=== PATIENT | male | born 1950 | race Caucasian/White ===

== ENCOUNTER 2019-03-19 11:16 | Emergency (ER) | payer BC, OTHER ==
--- NOTE | 2019-03-19 11:20 | UC ---
Respiratory Complaint HPI - HPI Summary HPI Summary: Patient is a 68yo male with PMHx significant for asthma x30 years presents with for SOB for the last week. Patient states that "this feels like usual asthma exacerbation, except inhaler does not seem to completely resolve sob like it normally does." Patient states that sob is worse with exertion. Also notes that "it feels like he cant exhale fully." Denies chest pain/tightness. Notes intermittent wheezing. States sob "comes and goes." States normally has sputum production in the mornings but that today he has not been able to bring any up. Denies increased sputum production. notes intermittent LE swelling for the past year. Patient denies this. Denies fever and chills. Never smoker. - History of Current Complaint Stated Complaint: ASTHMA SHORT OF BREATH Hx Obtained From: Patient, Family/Manufacturing Executive - - Allergies/Home Medications Allergies/Adverse Reactions: Allergies Allergy/AdvReac Type Severity Reaction Status Date / Time coffee Allergy GI Upset Uncoded 03/19/19 11:31 msg Allergy diarhea Uncoded 03/19/19 11:31 Home Medications: Home Medications Albuterol HFA INHALER* 1 puff INH 03/19/19 [History] Budesonide/Formote 160/4.5(NF) [Symbicort 160/4.5 (NF)] 1 puff INH DAILY [History Confirmed 03/19/19] PMH/Surg Hx/FS Hx/Imm Hx Respiratory History: Asthma - Family History Known Family History: Positive: Cardiac Disease - HF - mother, Diabetes - mother - Social History Lives: With Family Alcohol Use: None Substance Use Type: None Smoking Status (MU): Never Smoked Tobacco Review of Systems All Other Systems Reviewed And Are Negative: Yes Constitutional: Positive: Negative. Negative: Fever, Chills, Fatigue ENT: Positive: Other - PND. Negative: Sore Throat, Sinus Congestion Respiratory: Positive: Shortness Of Breath - mainly on exertion, Other - intermittent wheezing. Negative: Cough Cardiovascular: Positive: Negative. Negative: Palpitations, Chest Pain Gastrointestinal: Positive: Negative. Negative: Vomiting, Nausea Musculoskeletal: Positive: Negative Neurological: Positive: Negative Psychological: Positive: Negative Physical Exam Triage Information Reviewed: Yes Appearance: Well-Appearing, No Pain Distress, Well-Nourished Vital Signs: Vital Signs (72 hours) 03/19/19 11:25 Temperature 97.8 F Pulse Rate 97 Respiratory 16 Rate Blood Pressure 173/107 151/100 (mmHg) manual O2 Sat by Pulse 98 Oximetry Vital Signs Reviewed: Yes Eyes: Positive: Conjunctiva Clear ENT: Positive: Hearing grossly normal, Nasal drainage - PND, TMs normal, Uvula midline. Negative: Nasal congestion, Tonsillar swelling, Tonsillar exudate Neck exam: Normal Neck: Positive: Supple, Nontender, No Lymphadenopathy Respiratory: Positive: Chest non-tender, No respiratory distress, No accessory muscle use, Crackles - faint crackles heard on expiration at lung bases. Negative: Rhonchi, Stridor, Wheezing Cardiovascular Exam: Normal Cardiovascular: Positive: RRR. Negative: Tachycardia Musculoskeletal: Positive: Edema @ - 1+ BLEs Neurological: Positive: Alert Psychological: Positive: Age Appropriate Behavior Skin Exam: Normal Diagnostics - Radiology chest Radiology Interpretation Completed By: Radiologist Summary of Radiographic Findings: FINDINGS: The heart is within normal limits in size. Mediastinal and hilar contours appear within normal limits. There are diffuse interstitial infiltrates and thickening of the pleural fissures. There is suggestion of a trace right pleural effusion. IMPRESSION: FINDINGS SUGGESTIVE OF INTERSTITIAL PULMONARY EDEMA LESS LIKELY PNEUMONIA OR CHRONIC INTERSTITIAL LUNG DISEASE. Respiratory Course/Dx - Course Course Of Treatment: Patient received nebulizer here and noted minimal relief. BP 173/107 on arrival. Took manual after sitting a while and was 151/100. Patient CXR revealed interstitial pulmonary edema. Discussed this with patient and voiced concern for cardiac etiology. Patient afebrile and in no respiratory distress. I discussed with patient that he needs further lab work and evaluation. Offered lab work here and follow up tomorrow or option to go straight to emergency room from here for immediate workup. Discussed with patient that if he chose not to go to ED, that he absolutely must follow up within the next 24 hours. Patient states that [facility]. I sent patient home with lisinopril and furosemide until able to be seen tomorrow. Instructed patient to go to ED immediately with any new or worsening symptoms or if he is unable to be seen by pcp tomorrow. Patient and voiced understanding and agreed with treatment plan. Denied further questions. Discussed patient with Dr. Montes who agreed with treatment plan. - Differential Dx/Diagnosis Differential Diagnosis/HQI/PQRI: Asthma, CHF, Pulmonary Edema, Exacerbation Of COPD Provider Diagnosis: Pulmonary edema, Shortness of breath Discharge ED - Sign-Out/Discharge Documenting (check all that apply): Patient Departure All imaging exams completed and their final reports reviewed: Yes - Discharge Plan Condition: Stable Disposition: HOME Prescriptions: Furosemide TAB* [Lasix TAB*] 20 mg PO SEE INSTRUCTIONS #3 tab Lisinopril [Zestril] 10 mg PO DAILY #7 tablet Patient Education Materials: Pulmonary Edema (ED), Shortness of Breath (ED) Referrals: Georges Ley MD [Primary Care Provider] - 1 Day Additional Instructions: As discussed, your chest xray revealed pulmonary edema. This has multiple causes and needs further work-up as soon as possible. Take 20mg of the furosemide today. If no significant urine outflow occurs, take another 20mg 3-4 hours later. Then, take another 20mg tomorrow. You have also been prescribed lisinopril. Take 10mg daily until you receive further instruction from primary care doctor. You may continue with your inhaler as needed for shortness of breath if you find relief with it. You must follow up tomorrow with your primary care provider. If you are unable to follow up tomorrow, or you develop new or worsening symptoms, go to the nearest emergency room or call 911. - Billing Disposition and Condition Condition: STABLE Disposition: Home
[2019-03-19 11:32] VITALS: BP 173/107
[2019-03-19] MEDS ORDERED: Albuterol 2.5 MG/3 ML NEB.SOL* (0.083%) INH ONE (11:41)
== END 2019-03-19 12:54 | disposition home or self-care (01) ==
LOC: UCEAST 11:16
DX: J81.1 Chronic pulmonary edema (principal); R06.02 Shortness of breath; J45.909 Unspecified asthma, uncomplicated; Z79.899 Other long term (current) drug therapy; Z79.51 Long term (current) use of inhaled steroids; Z91.02 Food additives allergy status; Z91.018 Allergy to other foods
CPT/HCPCS: 71046; 99202; G0463

== ENCOUNTER 2019-03-20 06:52 | Inpatient (IN) | payer OTHER ==
[2019-03-20] MEDS ORDERED: Nitro 2% OINT* (Nitroglycerin) 1 INCH/PAK PAK ONE (07:07)
[2019-03-20] MEDS ORDERED: Furosemide IV* 10 MG/ML 10 ML VIAL (100 MG) ONE (07:07)
[2019-03-20] MEDS ORDERED: Furosemide IV* 10 MG/ML 10 ML VIAL (100 MG) IV ONE (07:11)
[2019-03-20] MEDS ORDERED: Nitro 2% OINT* (Nitroglycerin) 1 INCH/PAK PAK TOPICAL ONE (07:11)
[2019-03-20] MEDS ORDERED: NS 0.9% 1000 ML** 1,000 ML IV SCH (07:15)
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
[2019-03-20 07:21] LABS: ABS Eosinophils 0.3 10^3/ul (0-0.6); ABS Monocytes 0.6 10^3/ul (0-0.8); Eosinophil % 3.2 %; Hematocrit 55 % (42-52); Hemoglobin 18.9 g/dL (14.0-18.0); Lymphocyte % 33.1 %; Mean Corpuscular HGB Conc 34 g/dL (31-36); Mean Corpuscular Hemoglobin 32 pg (27-31); Mean Corpuscular Volume 92 fL (80-94); Mean Platelet Volume 8.1 fL (7.4-10.4); Nucleated Red Blood Cells % 0.1; Platelet Count 291 10^3/uL (150-450); Red Blood Count 5.99 10^6 /uL (4.18-5.48); Red Cell Distribution Width 14 % (10-15)
[2019-03-20 07:33] LABS: Influenza A Molecular NEGATIVE (Negative); Influenza B Molecular NEGATIVE (Negative)
[2019-03-20 07:34] LABS: Albumin 4.8 g/dL (3.2-5.2); Albumin/Globulin Ratio 1.5 (1-3); BUN/Creatinine Ratio 11.1 (8-20); Calcium 9.5 mg/dL (8.6-10.3); EGFR African American 74.6 (>60); EGFR Non-African American 61.6 (>60); Globulin 3.1 g/dL (2-4); Potassium 3.5 mmol/L (3.5-5.0); Total Bilirubin 0.8 mg/dL (0.2-1.0); Total Protein 7.9 g/dL (6.4-8.9)
[2019-03-20 07:36] LABS: Troponin I 0.01 ng/mL (<0.03)
[2019-03-20] MEDS ORDERED: Potassium Chlor TAB* 20 MEQ TAB.ER PO ONE ×2 (07:48→19:06)
[2019-03-20] MEDS ORDERED: Albuterol/Ipratropium NEB.SOL* Albuterol 2.5 MG/Ipratropium 0.5 MG 3 ML INH PRN (07:53)
[2019-03-20 08:45] LABS: TSH (Thyroid Stimulating Horm) 1.44 mcIU/mL (0.34-5.60)
[2019-03-20] MEDS ORDERED: Acetaminophen TAB* 325 MG PO PRN (09:46)
[2019-03-20] MEDS ORDERED: Al Hydrox/Mg Hydrox/Simet LIQ* 30 ML UDC PO PRN (09:46)
[2019-03-20] MEDS: Mometasone/Formoter 200/5 MDI INH SCH ×2 (12:21→19:51)
[2019-03-20] MEDS ORDERED: Perflutren Lipid Microsphere* 3 ML VIAL ONE (12:42)
[2019-03-20 13:54] LABS: BUN/Creatinine Ratio 12.1 (8-20); Calcium 8.7 mg/dL (8.6-10.3); EGFR African American 82.7 (>60); EGFR Non-African American 68.3 (>60); Magnesium 1.9 mg/dL (1.9-2.7); Potassium 3.8 mmol/L (3.5-5.0)
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
--- NOTE | 2019-03-20 18:31 | ECHO ---
*[facility]* [place] [address] Fax #: [phone] Transthoracic Echocardiogram Patient: Grover Campos V : 1950 Study Date: 03/20/2019 Age: 68 Gender: M HR: 87 bpm Height: 67 in /170.2 cm BSA: 1.93 m^2 Weight: 178.6 lb /81.2 kg BMI: 28 kg/m^2 *Director Of Anesthesia Services: * Una Wilson RDCS RN *Referring Physician: * Ana Lepe *Reading Physician: * Annika Bernal MD Indications: Congestive Heart Failure. History: Asthma. Syncopal episode years ago. Risk factors: Hypertension. Conclusions Summary: - Left ventricle: The cavity size is normal. Wall thickness is mildly increased. Systolic function is moderately to severely reduced. The estimated ejection fraction is 25-30%. Moderate to severe diffuse hypokinesis. - Mitral valve: There is trace to mild regurgitation. - Aortic valve: There is trace regurgitation. - Tricuspid valve: There is trace regurgitation. - No previous echocardiogram available. Study data: Transthoracic echocardiogram. Procedure: Transthoracic echocardiography was performed. Image quality was fair. Intravenous Definity 3 ml was administered to enhance imaging. Complete 2D, spectral Doppler, and color flow Doppler. Location: Bedside. Patient status: Inpatient. Patient room number: 445-02. Rhythm: Normal sinus rhythm with PVC's. Findings Left ventricle: The cavity size is normal. Wall thickness is mildly increased. Systolic function is moderately to severely reduced. The estimated ejection fraction is 25-30%. Moderate to severe diffuse hypokinesis. Doppler parameters are consistent with abnormal left ventricular relaxation (grade 1 diastolic dysfunction). Right ventricle: The cavity size is normal. Wall thickness is mildly increased. Systolic function is normal. Left atrium: The atrium is normal in size. Right atrium: The atrium is normal in size. Mitral valve: The leaflets are mildly thickened. There is no evidence of stenosis. There is trace to mild regurgitation. Aortic valve: The valve is trileaflet. The leaflets are mildly thickened. There is no evidence of stenosis. There is trace regurgitation. Tricuspid valve: The valve is structurally normal. There is no evidence of stenosis. There is trace regurgitation. Pulmonic valve: The valve is structurally normal. There is no evidence of stenosis. There is trace regurgitation. Aorta: Ascending aorta: The ascending aorta is not dilated. Aortic arch: The aortic arch is not dilated. The aortic root appears normal. Pericardium: There is no pericardial effusion. Pulmonary arteries: Not well visualized. Systolic pressure can not be accurately estimated. Systemic veins: Inferior vena cava: The vessel is normal in size. There is (>= 50%) respiratory change in the IVC dimension. Measurements Left ventricle Value Ref Aortic valve Value Ref SHONDA, LAX 4.5 cm 4.2 - 5.8 Jannette diam, ED 2.2 cm ---- ESD, LAX 4.0 cm 2.5 - 4.0 Peak v, S 1.05 m/sec ---- FS, LAX (L) 11 % 25 - 43 VTI, S 20.9 cm ---- PW, ED (H) 1.2 cm 0.6 - 1.0 Mean grad, S 3.0 mm Hg ---- IVS/PW, ED 0.99 Peak grad, S 4.0 mm Hg ---- E', lat jannette, TDI (L) 6.2 cm/sec >=10.0 LVOT/AV, VTI ratio 0.71 -- -- E/e', lat jannette, 15 TDI Mitral valve Value Ref E', med jannette, TDI (L) 4.8 cm/sec >=7.0 Peak E 0.96 m/sec -- -- E/e', med jannette, 20 Peak A 0.77 m/sec ---- TDI Decel time 162 ms ---- E', avg, TDI 5.5 cm/sec Peak grad, D 3.7 mm Hg ---- E/e', avg, TDI (H) 17 <=14 Peak E/A ratio 1.2 -- -- LVOT Value Ref Pulmonic valve Value Ref Peak flor, S 0.84 m/sec Peak v, S 0.8 m/sec ---- VTI, S 14.8 cm Peak grad, S 3.0 mm Hg ---- Mean grad, S 2 mm Hg Aortic root Value Ref Ventricular septum Value Ref Root diam 3.2 cm <4.1 IVS, ED (H) 1.2 cm 0.6 - 1.0 Ascending aorta Value Ref Right ventricle Value Ref AAo AP diam, S 3.1 cm ---- AW thickness, ED (H) 0.7 cm 0.1 - 0.5 SHONDA, LAX 2.8 cm Aortic arch Value Ref SHONDA minor ax, A4C 3.4 cm 1.9 - 3.5 Arch diam 2.5 cm ---- mid Decending aorta Value Ref Left atrium Value Ref Kalen peak flor 0.45 m/sec ---- AP dim, ES 3.40 cm 3.00 - 4.00 Inferior vena cava Value Ref ML dim, A4C 3.8 cm Diam 1.7 cm ---- SI dim, A4C 5.0 cm Vol/bsa, ES, 1-p 17 ml/m^2 12 - 37 A4C Vol/bsa, ES, A/L 26 ml/m^2 16 - 34 Right atrium Value Ref SI dim, ES 4.5 cm 3.4 - 5.3 ML dim, ES, A4C 3.4 cm 2.6 - 4.4 SI dim, ES, A4C 4.5 cm 3.4 - 5.3 Estimated RAP 3 mm Hg Legend: (L) and (H) sammi values outside specified reference range. Prepared and electronically signed by Annika Bernal MD 03/20/2019 18:30
[2019-03-20] MEDS ORDERED: Furosemide IV* 10 MG/ML VIAL (40 MG) IV ONE (19:06)
[2019-03-20] MEDS: Lisinopril TAB* 10 MG PO SCH (20:13)
[2019-03-20] MEDS: Enoxaparin(*) 40 MG/0.4 ML SYR SUBCUT SCH (20:14)
[2019-03-20] MEDS: Metoprolol Tartrate TAB* 25 MG PO SCH (20:14)
[2019-03-21 05:26] LABS: BUN/Creatinine Ratio 12.8 (8-20); Calcium 8.4 mg/dL (8.6-10.3); EGFR African American 74.6 (>60); EGFR Non-African American 61.6 (>60); Magnesium 1.9 mg/dL (1.9-2.7); Potassium 3.8 mmol/L (3.5-5.0)
--- NOTE | 2019-03-21 08:10 | PN ---
Subjective Date of Service: 03/21/19 Interval History: No acute events overnight. Few episodes of asymptomatic NSVT. Patient still requiring O2 this AM, but will continue to wean. Cardiology consult in place given systolic heart failure with hypokinesis. Started on beta-kiara last night and tolerating well. Patient reports ongoing orthopnea but thinks his LE edema is improved. Objective Active Medications: Acetaminophen (Tylenol Tab*) 975 mg PO Q8H PRN PRN Reason: PAIN - MILD Al Hydrox/Mg Hydrox/Simethicone (Maalox Plus*) 30 ml PO Q6H PRN PRN Reason: INDIGESTION Albuterol/Ipratropium (Duoneb (Albuterol 2.5 Mg/Ipratropium 0.5 Mg)) 1 neb INH Q4H PRN PRN Reason: SOB/WHEEZING Enoxaparin Sodium (Lovenox(*)) 40 mg SUBCUT BEDTIME [facility] Last Admin: 03/20/19 20:14 Dose: 40 mg Lisinopril (Prinivil Tab*) 10 mg PO BEDTIME [facility] Last Admin: 03/20/19 20:13 Dose: 10 mg Metoprolol Tartrate (Lopressor Tab*) 12.5 mg PO Q12HR [facility] Last Admin: 03/20/19 20:14 Dose: 12.5 mg Mometasone Furoate/Formoterol Fumar (Dulera 200/5 Mdi*) 2 puff INH BID [facility]; Protocol Last Admin: 03/20/19 19:51 Dose: 2 puff Vital Signs - 8 hr 03/21/19 03/21/19 00:15 03:06 Temperature 98.2 F Pulse Rate 82 Respiratory 16 Rate Blood Pressure 110/70 107/77 (mmHg) O2 Sat by Pulse 98 Oximetry Oxygen Devices in Use Now: Nasal Cannula Appearance: well appearing man in NAD, alert and interactive, speaking in full sentences Eyes: No Scleral Icterus Ears/Nose/Mouth/Throat: Clear Oropharnyx, Mucous Membranes Moist Neck: NL Appearance and Movements; NL JVP, Trachea Midline Respiratory: Symmetrical Chest Expansion and Respiratory Effort, Clear to Auscultation Cardiovascular: NL Sounds; No Murmurs; No JVD, RRR Abdominal: NL Sounds; No Tenderness; No Distention, No Hepatosplenomegaly Extremities: - - trace edema over ankles Skin: No Rash or Ulcers Result Diagrams: 03/20/19 07:07 03/21/19 04:57 Assess/Plan/Problems-Billing Assessment: Mr. Soriano is a 68-year-old man with history of asthma and hypertension who is presenting with 1 week of progressive dyspnea in the context of lower extremity swelling and orthopnea. He was found to have hypoxia, with TTE revealing new HFrEF 25-30%. - Patient Problems (1) Heart failure with reduced ejection fraction Comment: New diagnosis. EF 25-30%. - cont lisinopril 10mg, metoprolol tartrate 12.5mg q12h - give another dose of furosemide 40mg IV today and wean O2 as able - monitor BP, daily weight, Is & Os - cardiology consult pending (2) Asthma Comment: - cont home Symbicort formulary substitute - nebs prn SOB (3) DVT prophylaxis Comment: lovenox
[2019-03-21] MEDS: Mometasone/Formoter 200/5 MDI INH SCH ×2 (08:23→19:26)
[2019-03-21] MEDS ORDERED: Furosemide IV* 10 MG/ML VIAL (40 MG) IV ONE (08:54)
[2019-03-21] MEDS: Metoprolol Tartrate TAB* 25 MG PO SCH ×2 (09:22→21:03)
--- NOTE | 2019-03-21 13:23 | CONS ---
CC: Dr. Georges Ley CARDIOLOGY CONSULTATION REPORT: DATE OF CONSULT: 03/21/19 REFERRING PHYSICIAN: Dr. Ana Lepe. REASON FOR CONSULT: Shortness of breath with cardiomyopathy. HISTORY OF PRESENT ILLNESS: Mr. Soriano is a 68-year-old gentleman without known cardiac disease, who notes 1 week of shortness of breath. He was admitted to [facility] yesterday and received Lasix apparently with good effect. He had a transthoracic echocardiogram completed yesterday (please see also that report for further details), which showed severely depressed left ventricular ejection fraction of 25% to 30% with [id number] diffuse hypokinesis, functionally benign heart valves. Cardiac chamber sizes were normal. The patient does deny chest pain. PAST MEDICAL HISTORY: Significant for hypertension in the past. He was apparently on an JOSÉ inhibitor but that was stopped previously. He also does have a history of asthma, cholecystectomy in 2011, vitamin B12 deficiency. HOME MEDICATIONS: 1. Symbicort 1 puff daily. 2. Albuterol 2 puffs q.4 hours p.r.n. 3. Vitamin B complex. ALLERGIES TO MEDICATIONS: None. He denies shrimp, seafood, or dye allergies. FAMILY HISTORY: Mother with a history of congestive heart failure. No family history of AZ. There is a family history of diabetes and cancer with his father passing away of lymphoma and his maternal grandmother having a history of breast cancer. No family history of stroke. SOCIAL HISTORY: He does not smoke cigarettes. He occasionally drinks a glass of wine. He does not use illicit drugs. He has been for 46 years. 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 He does not do exercises and states he spends 12 to 16 hours per day in front of his computer. REVIEW OF SYSTEMS: He denies personal history of stroke, cancer, vomiting up blood, coughing up blood, bright red blood per rectum, bleeding stomach ulcers, or renal calculi. He has a history of asthma. He denies emphysema, pneumonia, tuberculosis, sleep apnea, home oxygen use, or diabetes. Again, he has a history of hypertension in the past but he is off medications prior to this hospitalization. He denies prior AZ, congestive heart failure, cardiac surgery , cardiac murmurs or palpitations. He has a history of PTSD from his service in [place], for which he was treated with therapy. Denies lupus, psoriasis, seizures, Parkinson disease, myasthenia gravis, thyroid disorders, liver disorders, kidney disorders, claudication symptoms, pulmonary emboli, deep venous thrombosis, or peripheral arterial disease. He has been having occasional edema for the past year and a half. He has a history of acid indigestion and apparently had a barium swallow. All other review of systems are negative x14 except as per this documentation. PHYSICAL EXAM: Height 5 feet 7 inches, weight 177 pounds, temperature 97.6 degrees Fahrenheit, pulse 84, O2 saturation 97%, blood pressure 98/55 to 109/ 68. On general exam, he is a pleasant gentleman, in no acute distress. HEENT shows the cranium is normocephalic and atraumatic. He has moist mucosal membranes. Neck veins reveal a JVP of 10 cm while sitting upright. No carotid bruits. Visible skin warm and perfused. Lungs are clear to auscultation. No wheezes and no rales. Cardiac exam: S1, S2. Regular rate. No significant murmurs, rubs or gallops. PMI is nondisplaced. Abdomen: Soft, nondistended, appears benign. Extremities with no more than trivial peripheral edema. Pulses appear grossly intact. DIAGNOSTIC STUDIES/LAB DATA: A 12-lead EKG, 03/21/19 at 06:03 a.m., demonstrates sinus arrhythmia with left atrial enlargement, consider old anterior infarct with nonspecific T-wave changes. Echocardiogram yesterday completed as above. White blood cell count 9, hematocrit 55, platelet count 291. Sodium 139, potassium 3.8, chloride 103, bicarbonate 30, BUN 15, creatinine 1.17. Troponin 0.01, TSH 1.44, magnesium 2.0. IMPRESSION: Mr. Soriano is a 68-year-old gentleman with a history of hypertension in the past, although he did not require continued medical therapy for that, now admitted with shortness of breath for 1 week. He has been found to have severe global cardiomyopathy. He is responding to diuretics. PLAN/RECOMMENDATIONS: 1. Agree with institution of JOSÉ inhibitor and beta-kiara, and if tolerating including regarding his blood pressure and electrolytes stable, could add Aldactone 25 mg once a day on 03/23/19. Also would start Lasix 20 mg once a day and follow renal function. 2. Ischemic evaluation with an exercise Myoview nuclear stress scan for further cardiovascular risk stratification. 3. Further recommendations to follow the above. The patient may follow up with myself as an outpatient postdischarge from a cardiac standpoint. 4. Other management as per the hospitalist medicine service. Dear Dr. Ana Lepe, many thanks for this kind cardiac consultation. Please do not hesitate to contact me if you have any questions or concerns regarding the patient's cardiovascular consultative care. The case has been discussed with the patient who is agreeable and I have discussed the case with Dr. Lepe. [id number]/CPS #: [id number] BRANDI
[2019-03-21] MEDS: Enoxaparin(*) 40 MG/0.4 ML SYR SUBCUT SCH (21:02)
[2019-03-21] MEDS: Lisinopril TAB* 10 MG PO SCH (21:03)
[2019-03-22] MEDS: Furosemide TAB* 20 MG PO SCH (06:03)
[2019-03-22] MEDS: Spironolactone TAB* 25 MG PO SCH (06:03)
[2019-03-22] MEDS: Mometasone/Formoter 200/5 MDI INH SCH ×2 (08:21→19:43)
[2019-03-22] MEDS: Metoprolol Tartrate TAB* 25 MG PO SCH ×2 (08:36→20:18)
[2019-03-22 08:46] LABS: CO2 Carbon Dioxide 24 mmol/L (22-32); Calcium 8.7 mg/dL (8.6-10.3); Chloride 102 mmol/L (101-111); Sodium 136 mmol/L (135-145)
[2019-03-22 08:51] LABS: BUN/Creatinine Ratio 18.6 (8-20); Blood Urea Nitrogen 21 mg/dL (6-24); EGFR African American 77.6 (>60); EGFR Non-African American 64.2 (>60); Glucose 89 mg/dL (70-100)
[2019-03-22 08:55] LABS: Anion Gap 10 mmol/L (2-11)
--- NOTE | 2019-03-22 10:05 | PN ---
Subjective Date of Service: 03/22/19 Interval History: No acute events overnight. BP/HR tolerating initiation of HFrEF regimen. On room air today. Continue to encourage ambulation. Pending stress on Sunday. Patient had episode of vasovagal prodrome this morning - felt hot, clammy, need to use bathroom. Pressed call pope - vitals normal and symptoms resolved spontaneously. Without recurrence. Denies dyspnea or chest pain now. Objective Active Medications: Acetaminophen (Tylenol Tab*) 975 mg PO Q8H PRN PRN Reason: PAIN - MILD Al Hydrox/Mg Hydrox/Simethicone (Maalox Plus*) 30 ml PO Q6H PRN PRN Reason: INDIGESTION Albuterol/Ipratropium (Duoneb (Albuterol 2.5 Mg/Ipratropium 0.5 Mg)) 1 neb INH Q4H PRN PRN Reason: SOB/WHEEZING Enoxaparin Sodium (Lovenox(*)) 40 mg SUBCUT BEDTIME [facility] Last Admin: 03/21/19 21:02 Dose: 40 mg Furosemide (Lasix Tab*) 20 mg PO DAILY@0600 [facility] Last Admin: 03/22/19 06:03 Dose: 20 mg Lisinopril (Prinivil Tab*) 10 mg PO BEDTIME [facility] Last Admin: 03/21/19 21:03 Dose: 10 mg Metoprolol Tartrate (Lopressor Tab*) 12.5 mg PO Q12HR [facility] Last Admin: 03/22/19 08:36 Dose: 12.5 mg Mometasone Furoate/Formoterol Fumar (Dulera 200/5 Mdi*) 2 puff INH BID [facility]; Protocol Last Admin: 03/22/19 08:21 Dose: 2 puff Spironolactone (Aldactone Tab*) 25 mg PO DAILY@0600 [facility] Last Admin: 03/22/19 06:03 Dose: 25 mg Vital Signs - 8 hr 03/22/19 03/22/19 03/22/19 03:38 05:34 07:39 Temperature 97.8 F 97.8 F 97.7 F Pulse Rate 86 88 85 Respiratory 20 16 14 Rate Blood Pressure 124/82 129/82 114/65 (mmHg) O2 Sat by Pulse 100 99 100 Oximetry 03/22/19 03/22/19 08:00 08:24 Temperature Pulse Rate 89 Respiratory 14 14 Rate Blood Pressure (mmHg) O2 Sat by Pulse 100 Oximetry Appearance: well appearing man in NAD, speaking in full sentences Eyes: No Scleral Icterus Ears/Nose/Mouth/Throat: Clear Oropharnyx, Mucous Membranes Moist Neck: NL Appearance and Movements; NL JVP, Trachea Midline Respiratory: Symmetrical Chest Expansion and Respiratory Effort, Clear to Auscultation Cardiovascular: NL Sounds; No Murmurs; No JVD, RRR Abdominal: NL Sounds; No Tenderness; No Distention, No Hepatosplenomegaly Extremities: No Edema Skin: No Rash or Ulcers Neurological: Alert and Oriented x 3 Result Diagrams: 03/22/19 12:37 03/22/19 12:37 Assess/Plan/Problems-Billing Assessment: Mr. Soriano is a 68-year-old man with history of asthma and hypertension who is presenting with 1 week of progressive dyspnea in the context of lower extremity swelling and orthopnea. He was found to have hypoxia, with TTE revealing new HFrEF 25-30%. - Patient Problems (1) Heart failure with reduced ejection fraction Comment: New diagnosis. EF 25-30%. - cont lisinopril 10mg, metoprolol suc 25mg - switch IV to PO furosemide 20mg daily - start spironolactone - monitor BP, daily weight, Is & Os - cardiology recommending nuclear stress test on Sunday (2) Asthma Comment: - cont home Symbicort formulary substitute - nebs prn SOB (3) DVT prophylaxis Comment: lovenox
[2019-03-22 12:44] LABS: Hematocrit 46 % (42-52); Hemoglobin 16.1 g/dL (14.0-18.0); Mean Corpuscular HGB Conc 35 g/dL (31-36); Mean Corpuscular Hemoglobin 32 pg (27-31); Mean Corpuscular Volume 91 fL (80-94); Mean Platelet Volume 7.9 fL (7.4-10.4); Platelet Count 244 10^3/uL (150-450); Red Blood Count 5.08 10^6 /uL (4.18-5.48); Red Cell Distribution Width 14 % (10-15); White Blood Count 8.5 10^3/uL (3.5-10.8)
[2019-03-22 13:01] LABS: BUN/Creatinine Ratio 17.1 (8-20); Calcium 9.1 mg/dL (8.6-10.3); EGFR African American 74.6 (>60); EGFR Non-African American 61.6 (>60); Potassium 4.1 mmol/L (3.5-5.0)
[2019-03-22] MEDS: Enoxaparin(*) 40 MG/0.4 ML SYR SUBCUT SCH (20:18)
[2019-03-22] MEDS: Lisinopril TAB* 10 MG PO SCH (20:18)
[2019-03-23] MEDS: Spironolactone TAB* 25 MG PO SCH (05:12)
[2019-03-23] MEDS: Furosemide TAB* 20 MG PO SCH (05:12)
[2019-03-23 06:45] LABS: BUN/Creatinine Ratio 17.7 (8-20); Calcium 9.1 mg/dL (8.6-10.3); EGFR African American 77.6 (>60); EGFR Non-African American 64.2 (>60); Magnesium 2.1 mg/dL (1.9-2.7); Potassium 3.9 mmol/L (3.5-5.0)
[2019-03-23] MEDS: Metoprolol Succinate XL TAB* 25 MG PO SCH (07:48)
[2019-03-23] MEDS: Mometasone/Formoter 200/5 MDI INH SCH ×2 (08:00→20:23)
--- NOTE | 2019-03-23 08:18 | PN ---
Subjective Date of Service: 03/23/19 Interval History: No acute events overnight. Patient is off O2 and on only oral medications. He is tolerating his new HF regimen well. Pending stress test tomorrow. Objective Active Medications: Acetaminophen (Tylenol Tab*) 975 mg PO Q8H PRN PRN Reason: PAIN - MILD Al Hydrox/Mg Hydrox/Simethicone (Maalox Plus*) 30 ml PO Q6H PRN PRN Reason: INDIGESTION Albuterol/Ipratropium (Duoneb (Albuterol 2.5 Mg/Ipratropium 0.5 Mg)) 1 neb INH Q4H PRN PRN Reason: SOB/WHEEZING Enoxaparin Sodium (Lovenox(*)) 40 mg SUBCUT BEDTIME [facility] Last Admin: 03/22/19 20:18 Dose: 40 mg Furosemide (Lasix Tab*) 20 mg PO DAILY@0600 [facility] Last Admin: 03/23/19 05:12 Dose: 20 mg Lisinopril (Prinivil Tab*) 10 mg PO BEDTIME [facility] Last Admin: 03/22/19 20:18 Dose: 10 mg Metoprolol Succinate (Toprol Xl Tab*) 25 mg PO DAILY [facility] Last Admin: 03/23/19 07:48 Dose: 25 mg Mometasone Furoate/Formoterol Fumar (Dulera 200/5 Mdi*) 2 puff INH BID [facility]; Protocol Last Admin: 03/23/19 08:00 Dose: 2 puff Spironolactone (Aldactone Tab*) 25 mg PO DAILY@0600 [facility] Last Admin: 03/23/19 05:12 Dose: 25 mg Vital Signs - 8 hr 03/23/19 03/23/19 03/23/19 02:54 07:08 07:36 Temperature 97.6 F 98.0 F Pulse Rate 86 85 Respiratory 14 18 16 Rate Blood Pressure 115/72 126/82 (mmHg) O2 Sat by Pulse 94 96 Oximetry 03/23/19 08:06 Temperature Pulse Rate 82 Respiratory 20 Rate Blood Pressure (mmHg) O2 Sat by Pulse 94 Oximetry Oxygen Devices in Use Now: None Appearance: well appearing man in NAD, alert and interactive, speaking in full sentences Eyes: No Scleral Icterus Ears/Nose/Mouth/Throat: Clear Oropharnyx, Mucous Membranes Moist Neck: NL Appearance and Movements; NL JVP, Trachea Midline Respiratory: Symmetrical Chest Expansion and Respiratory Effort, Clear to Auscultation Cardiovascular: NL Sounds; No Murmurs; No JVD, RRR Abdominal: NL Sounds; No Tenderness; No Distention, No Hepatosplenomegaly Lymphatic: No Cervical Adenopathy Extremities: No Edema Skin: No Rash or Ulcers Neurological: Alert and Oriented x 3 Result Diagrams: 03/22/19 12:37 03/23/19 06:07 Assess/Plan/Problems-Billing Assessment: Mr. Soriano is a 68-year-old man with history of asthma and hypertension who is presenting with 1 week of progressive dyspnea in the context of lower extremity swelling and orthopnea. He was found to have hypoxia, with TTE revealing new HFrEF 25-30%. - Patient Problems (1) Heart failure with reduced ejection fraction Comment: New diagnosis. EF 25-30%. - cont lisinopril 10mg, metoprolol suc 25mg - cont furosemide PO 20mg daily, and spironolactone 25mg daily - monitor BP, daily weight, Is & Os - cardiology recommending nuclear stress test on Sunday (2) Asthma Comment: - cont home Symbicort formulary substitute - nebs prn SOB (3) DVT prophylaxis Comment: lovenox
[2019-03-23] MEDS: Lisinopril TAB* 10 MG PO SCH (20:55)
[2019-03-23] MEDS: Enoxaparin(*) 40 MG/0.4 ML SYR SUBCUT SCH (20:55)
[2019-03-24] MEDS: Mometasone/Formoter 200/5 MDI INH SCH (06:59)
[2019-03-24] MEDS: Metoprolol Succinate XL TAB* 25 MG PO SCH (10:57)
[2019-03-24] MEDS: Spironolactone TAB* 25 MG PO SCH (10:57)
[2019-03-24] MEDS: Furosemide TAB* 20 MG PO SCH (10:57)
[2019-03-24 11:24] VITALS: BP 113/71
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
== END 2019-03-24 14:45 | disposition home or self-care (01) | DRG 314 ==
LOC: ED 06:52 → MEDTELE 09:45
PROVIDERS: ADMIT Internal Medicine; ATTEND Hospitalist
DX: I42.8 Other cardiomyopathies (principal); J96.01 Acute respiratory failure with hypoxia; I50.21 Acute systolic (congestive) heart failure; I11.0 Hypertensive heart disease with heart failure; J45.909 Unspecified asthma, uncomplicated; I10 Essential (primary) hypertension; E53.8 Deficiency of other specified B group vitamins; Z79.51 Long term (current) use of inhaled steroids; Z79.899 Other long term (current) drug therapy; Z83.3 Family history of diabetes mellitus; Z82.49 Family history of ischemic heart disease and other diseases of the circulatory system; Z80.3 Family history of malignant neoplasm of breast; Z80.7 Family history of other malignant neoplasms of lymphoid, hematopoietic and related tissues
CPT/HCPCS: 36415; 71045; 78452; 80048; 80053; 82803; 83036; 83605; 83735; 83880; 84443; 84484; 85025; 85027; 93005; 93017; 93306; 94640; 96374; 99284; A9270-GY; A9502; C8929; J1650; J1940

== ENCOUNTER 2019-03-25 16:09 | Emergency (ER) | payer OTHER ==
[2019-03-25 16:27] VITALS: BP 132/82
--- NOTE | 2019-03-25 16:41 | UC ---
Cardiac HPI - HPI Summary HPI Summary: 68-year-old male comes in with a chief complaint of chest pain. Started several hours ago. In the center of his chest. Is like a pressure. He also has some shortness of breath. He was recently diagnosed with nonischemic cardiomyopathy. He had a stress test yesterday and that was no need for any stents. He was discharged from the hospital yesterday after admission starting March 20, 2019. Patient has bilateral pedal edema which has improved since being admitted to the hospital. - History of Current Complaint Chief Complaint: UCChestPain Stated Complaint: CHEST COMPLAINT Time Seen by Provider: 03/25/19 16:11 Pain Intensity: 4 - Allergy/Home Medications Allergies/Adverse Reactions: Allergies Allergy/AdvReac Type Severity Reaction Status Date / Time No Known Drug Allergies Allergy See Comment Verified 03/25/19 16:19 coffee AdvReac GI Upset Uncoded 03/25/19 16:19 msg AdvReac diarhea Uncoded 03/25/19 16:19 PMH/Surg Hx/FS Hx/Imm Hx Previously Healthy: Yes - nonischemic cardiomyopathy Respiratory History: Asthma - Surgical History Surgical History: Yes Surgery Procedure, Year, and Place: [facility] - Family History Known Family History: Positive: Cardiac Disease - HF - mother, Diabetes - mother - Social History Alcohol Use: Occasionally Substance Use Type: None Smoking Status (MU): Never Smoked Tobacco - Immunization History Most Recent Influenza Vaccination: 01/2020 Most Recent Pneumonia Vaccination: cannot remember date Review of Systems All Other Systems Reviewed And Are Negative: Yes Constitutional: Positive: Other - SEE HPI Skin: Positive: Negative Eyes: Positive: Negative ENT: Positive: Negative Respiratory: Positive: Shortness Of Breath Cardiovascular: Positive: Chest Pain Gastrointestinal: Positive: Negative Motor: Positive: Negative Neurovascular: Positive: Negative Musculoskeletal: Positive: Edema Neurological: Positive: Negative Psychological: Positive: Negative Is Patient Immunocompromised?: No Physical Exam Triage Information Reviewed: Yes Appearance: Well-Appearing, No Pain Distress, Well-Nourished Vital Signs: Initial Vital Signs Temp 98.5 F 03/25/19 16:21 Pulse 90 03/25/19 16:21 Resp 18 03/25/19 16:21 BP 132/82 03/25/19 16:21 Pulse Ox 96 03/25/19 16:21 Vital Signs Reviewed: Yes Eye Exam: Normal Eyes: Positive: Conjunctiva Clear Neck: Positive: Supple Respiratory: Positive: Lungs clear, Normal breath sounds, No respiratory distress Cardiovascular: Positive: RRR Musculoskeletal: Positive: Strength Intact, ROM Intact, Edema @ - Bilateral pedal pitting edema. Neurological: Positive: Alert Psychological: Positive: Normal Response To Family, Age Appropriate Behavior Skin Exam: Normal Diagnostics - EKG Cardiac Rate: NL - AT 1614 Cardiac Rhythm: Sinus: Normal - 94BPM Ectopy: None ST Segment: Non-Specific - Assessment/Plan Course Of Treatment: I discussed the EKG with the patient and his . I do not see any ischemic changes other than some nonspecific T abnormalities at this time. I compared it to an EKG from March 21, 2019 and today's EKG appears more normal than that EKG. I let the patient know that he needed further varies in the emergency department. He declined ambulance transport prefers to go by POV. - Clinical Impression Provider Diagnosis: Chest pain Discharge ED - Sign-Out/Discharge Documenting (check all that apply): Patient Departure All imaging exams completed and their final reports reviewed: No Studies - Discharge Plan Condition: Stable Disposition: HOME-RECOMMEND TO ED Patient Education Materials: Chest Pain (ED) Referrals: Georges Ley MD [Primary Care Provider] - Additional Instructions: GO DIRECTLY TO THE EMERGENCY DEPARTMENT FOR FURTHER EVALUATION OF YOUR CHEST PAIN. - Billing Disposition and Condition Condition: STABLE Disposition: Home-Recommend to ED
== END 2019-03-25 16:50 | disposition home health service (06) ==
LOC: UCEAST 16:09
DX: R07.9 Chest pain, unspecified (principal); R60.0 Localized edema; I42.8 Other cardiomyopathies; J45.909 Unspecified asthma, uncomplicated; R06.02 Shortness of breath; Z91.09 Other allergy status, other than to drugs and biological substances; Z91.018 Allergy to other foods
CPT/HCPCS: 93005; 99212; G0463

== ENCOUNTER 2019-03-25 17:06 | Emergency (ER) | payer OTHER ==
[2019-03-25 17:53] LABS: ABS Eosinophils 0.2 10^3/ul (0-0.6); ABS Lymphocytes 1.8 10^3/ul (1.0-4.8); ABS Monocytes 0.7 10^3/ul (0-0.8); ABS Neutrophils 3.2 10^3/ul (1.5-7.7); Eosinophil % 2.7 %; Hematocrit 47 % (42-52); Hemoglobin 16.4 g/dL (14.0-18.0); Mean Corpuscular HGB Conc 35 g/dL (31-36); Mean Corpuscular Hemoglobin 32 pg (27-31); Mean Corpuscular Volume 91 fL (80-94); Mean Platelet Volume 8.3 fL (7.4-10.4); Nucleated Red Blood Cells % 0.1; Platelet Count 253 10^3/uL (150-450); Red Blood Count 5.14 10^6 /uL (4.18-5.48); Red Cell Distribution Width 14 % (10-15); White Blood Count 5.8 10^3/uL (3.5-10.8)
[2019-03-25 18:00] LABS: INR 1.07 (0.82-1.09)
[2019-03-25 18:11] LABS: Albumin 4.6 g/dL (3.2-5.2); Albumin/Globulin Ratio 1.7 (1-3); BUN/Creatinine Ratio 13.5 (8-20); Calcium 9.5 mg/dL (8.6-10.3); EGFR African American 64.3 (>60); EGFR Non-African American 53.2 (>60); Globulin 2.7 g/dL (2-4); Potassium 4.5 mmol/L (3.5-5.0); Total Bilirubin 0.7 mg/dL (0.2-1.0); Total Protein 7.3 g/dL (6.4-8.9); Troponin I 0.01 ng/mL (<0.03)
--- NOTE | 2019-03-25 18:35 | ED ---
HPI Chest Pain - HPI Summary HPI Summary: The patient is a 68 y/o M presenting to [facility] accompanied by daughter with a chief complaint of chest discomfort at 1200 today. He reports that he was just discharged from the hospital yesterday, and since being discharged, he hasnt felt right or comfortable. He endorses nausea, lightheadedness, and overall general discomfort. Today, he experienced a pressure sensation in the mid- sternal chest described as a bubble or burp in the wrong place. The pressure is only mildly present now. He has not taken any medications for the pain. The pain was sudden onset, and he was at rest. Prior to that, he ate chicken with stuffing and had only been drinking green tea. When he was here, he had a nuclear stress test on a treadmill without positive results. He notes a similar sensation before but in a different location. PMHx: HTN, asthma, COPD , pulmonary edema, CHF. Nonsmoker, occasional EtOH, no substance use. Medications reviewed. Allergies noted. - History of Current Complaint Chief Complaint: EDChestPainROMI Time Seen by Provider: 03/25/19 18:25 Hx Obtained From: Patient Onset/Duration: Started Hours Ago - 1200, Still Present Time of Onset: 12:00 Timing: Constant, Lasting Hours Initial Severity: Moderate Current Severity: Mild Pain Intensity: 0 Pain Scale Used: 0-10 Numeric Chest Pain Location: Mid Sternal Chest Pain Radiates: No Character: Other: - pressure, "bubble" Aggravating Factor(s): Nothing Alleviating Factor(s): Nothing Associated Signs and Symptoms: Positive: Chest Pain, Lightheadedness, Nausea - Additional Pertinent History Primary Care Physician: BARAK - Allergy/Home Medications Allergies/Adverse Reactions: Allergies Allergy/AdvReac Type Severity Reaction Status Date / Time No Known Drug Allergies Allergy See Comment Verified 03/25/19 16:19 coffee AdvReac GI Upset Uncoded 03/25/19 16:19 msg AdvReac diarhea Uncoded 03/25/19 16:19 PMH/Surg Hx/FS Hx/Imm Hx Endocrine/Hematology History: Denies: Hx Diabetes Cardiovascular History: Reports: Hx Congestive Heart Failure, Hx Hypertension Respiratory History: Reports: Hx Asthma, Hx Chronic Obstructive Pulmonary Disease (COPD), Hx Pulmonary Edema Sensory History: Reports: Hx Contacts or Glasses Denies: Hx Hearing Aid Opthamlomology History: Reports: Hx Contacts or Glasses - Surgical History Surgical History: Yes Surgery Procedure, Year, and Place: [place] Infectious Disease History: No Infectious Disease History: Denies: Traveled Outside the [place] in Last 30 Days - Family History Known Family History: Positive: Cardiac Disease - HF - mother, Diabetes - mother - Social History Alcohol Use: Occasionally Hx Substance Use: No Substance Use Type: Reports: None Hx Tobacco Use: No Smoking Status (MU): Never Smoked Tobacco Review of Systems Positive: Chest Pain - mid-sternal "bubble" "burp in the wrong place" Positive: Nausea Neurological: Other - lightheadedness All Other Systems Reviewed And Are Negative: Yes Physical Exam - Summary Physical Exam Summary: Constitutional: Well-developed, Well-nourished, Alert. (-) Distressed Skin: Warm, Dry HENT: Normocephalic; Atraumatic Eyes: Conjunctiva normal Neck: Musculoskeletal ROM normal neck. (-) JVD, (-) Stridor, (-) Tracheal deviation Cardio: Rhythm regular, rate normal, Heart sounds normal; Intact distal pulses; Radial pulses are 2+ and symmetric. (-) Murmur Pulmonary/Chest wall: Effort normal. (-) Respiratory distress, (-) Wheezes, (-) Rales Abd: Soft, (-) tenderness, (-) Distension, (-) Guarding, (-) Rebound Musculoskeletal: (+) 1+ Pitting edema bilaterally Lymph: (-) Cervical adenopathy Neuro: Alert, Oriented x3 Psych: Mood and affect Normal Triage Information Reviewed: Yes Vital Signs On Initial Exam: Initial Vitals Temp Pulse Resp BP Pulse Ox 98.6 F 87 16 142/82 99 03/25/19 17:09 03/25/19 17:09 03/25/19 17:09 03/25/19 17:09 03/25/19 17:09 Vital Signs Reviewed: Yes Procedures - Sedation Patient Received Moderate/Deep Sedation with Procedure: No Diagnostics - Vital Signs Vital Signs Temp Pulse Resp BP Pulse Ox 03/25/19 17:09 98.6 F 87 16 142/82 99 - Laboratory Lab Results: Lab Results 03/25/19 03/25/19 03/25/19 Range/Units 17:36 17:36 17:36 WBC 5.8 (3.5-10.8) 10^3/uL RBC 5.14 (4.18-5.48) 10^6 /uL Hgb 16.4 (14.0-18.0) g/dL Hct 47 (42-52) % MCV 91 (80-94) fL MCH 32 H (27-31) pg MCHC 35 (31-36) g/dL RDW 14 (10-15) % Plt Count 253 (150-450) 10^3/uL MPV 8.3 (7.4-10.4) fL Neut % (Auto) 54.3 % Lymph % (Auto) 31.0 % [place] % (Auto) 11.5 % Eos % (Auto) 2.7 % Baso % (Auto) 0.5 % Absolute Neuts (auto) 3.2 (1.5-7.7) 10^3/ul Absolute Lymphs (auto) 1.8 (1.0-4.8) 10^3/ul Absolute Monos (auto) 0.7 (0-0.8) 10^3/ul Absolute Eos (auto) 0.2 (0-0.6) 10^3/ul Absolute Basos (auto) 0.0 (0-0.2) 10^3/ul Absolute Nucleated RBC 0.0 10^3/ul Nucleated RBC % 0.1 INR (Anticoag Therapy) 1.07 (0.82-1.09) Sodium 140 (135-145) mmol/L Potassium 4.5 (3.5-5.0) mmol/L Chloride 100 L (101-111) mmol/L Carbon Dioxide 33 H (22-32) mmol/L Anion Gap 7 (2-11) mmol/L BUN 18 (6-24) mg/dL Creatinine 1.33 H (0.67-1.17) mg/dL Est GFR ( Amer) 64.3 (>60) Est GFR (Non-Af Amer) 53.2 (>60) BUN/Creatinine Ratio 13.5 (8-20) Glucose 101 H (70-100) mg/dL Calcium 9.5 (8.6-10.3) mg/dL Total Bilirubin 0.70 (0.2-1.0) mg/dL AST 32 (13-39) U/L ALT 35 (7-52) U/L Alkaline Phosphatase 80 (34-104) U/L Troponin I 0.01 (<0.03) ng/mL Total Protein 7.3 (6.4-8.9) g/dL Albumin 4.6 (3.2-5.2) g/dL Globulin 2.7 (2-4) g/dL Albumin/Globulin Ratio 1.7 (1-3) Result Diagrams: 03/25/19 17:36 03/25/19 17:36 Lab Statement: Any lab studies that have been ordered have been reviewed, and results considered in the medical decision making process. - Radiology CXR Radiology Interpretation Completed By: ED Physician Summary of Radiographic Findings: Slight pulmonary vascular congestion. Much improved from 03/20/19. ED physician has reviewed and interpreted this report. Pending official read. - EKG 1708 Cardiac Rate: NL - 87 bpm EKG Rhythm: Sinus Rhythm EKG Comparison: No Significant Change - Unchanged from 03/21/19 Summary of EKG Findings: Sinus rhythm at 78 bpm. T-wave inversions in aVL. No STEMI. ED physician has reviewed and interpreted this EKG. Re-Evaluation - Re-Evaluation First Eval Re-Evaluation Time: 20:50 Comment: We discussed results and plan for discharge. Chest Pain Course/Dx - Course Course Of Treatment: Patient is here 1 day after being discharged from the hospital. During his stay, patient had a nuclear stress test that showed global hypokinesis with most distensible lesion. Patient is diagnosed with nonischemic cardiomyopathy. Patient is much better looking from a heart standpoint with decreased swelling in his legs and much less fluid on his chest x-ray. Patient had his vague complaint of a "bubble "in his chest. Patient was given nitroglycerin with no change in his symptoms. Patient is here troponins which are negative. Patient's story is not consistent with ACS and he has no tachycardia or hypoxemia consistent with PE. Given patient's stress test yesterday, patient was discharged with PCP follow-up. - Diagnoses Provider Diagnoses: Chest pain Discharge ED - Sign-Out/Discharge Documenting (check all that apply): Patient Departure - Patient will be discharged home. - Discharge Plan Condition: Stable Disposition: HOME Patient Education Materials: Chest Pain (DC) Referrals: Georges Ley MD [Primary Care Provider] - 3 Days Additional Instructions: Follow up with your primary care doctor in 1-3 days. Come back for any worsening chest pain, trouble breathing, or any other concerning symptoms. - Billing Disposition and Condition Condition: STABLE Disposition: Home - Attestation Statements Document Initiated by Carlos: Yes Documenting Scribe: Richa Live Provider For Whom Carlos is Documenting (Include Credential): Dr. Arslan Garcia MD Scribe Attestation: Richa Trammell, scribed for Dr. Arslan Garcia MD on 03/25/19 at 2104. Scribe Documentation Reviewed: Yes Provider Attestation: The documentation as recorded by the Richa torres accurately reflects the service I personally performed and the decisions made by me, Dr. Arslan Garcia MD Status of Scribe Document: Viewed
[2019-03-25] MEDS ORDERED: Nitroglycerin TAB 0.4 MG* 0.4 MG TAB SL ONE (18:50)
[2019-03-25 21:09] VITALS: BP 128/77
== END 2019-03-25 21:08 | disposition home or self-care (01) ==
LOC: ED 17:06
DX: R07.9 Chest pain, unspecified (principal); R42 Dizziness and giddiness; R11.0 Nausea; I10 Essential (primary) hypertension; J45.909 Unspecified asthma, uncomplicated; J44.9 Chronic obstructive pulmonary disease, unspecified; Z86.711 Personal history of pulmonary embolism
CPT/HCPCS: 36415; 71046; 80053; 83880; 84484; 85025; 85610; 93005; 99283; A9270-GY